=== PATIENT | male | born 1955 | race Asian ===

== ENCOUNTER 2019-05-13 07:39 | Day surgery (SDC) | payer OTHER ==
[~2019-05-13] VITALS: Ht 172.7 cm; Wt 75.7 kg
[2019-05-13 08:23] VITALS: BP 153/94
[2019-05-13 11:56] VITALS: BP 126/83
== END 2019-05-13 11:30 | disposition home or self-care (01) ==
LOC: GI 07:39 → OR 09:15 → GI 11:30
DX: Z12.11 Encounter for screening for malignant neoplasm of colon (principal); D12.4 Benign neoplasm of descending colon; D12.5 Benign neoplasm of sigmoid colon; K64.8 Other hemorrhoids; Z87.891 Personal history of nicotine dependence; Z79.899 Other long term (current) drug therapy; Z80.0 Family history of malignant neoplasm of digestive organs
CPT/HCPCS: 45378; J1200; J1610; J2250; J2310; J3010; J3490